=== PATIENT | male | born 1930 | race Caucasian/White ===

== ENCOUNTER 2018-10-10 13:20 | Day surgery (SDC) | payer MEDICARE, BC ==
[2018-10-03 11:45] VITALS: BP 155/79
[~2018-10-10] VITALS: Ht 172.7 cm; Wt 77.0 kg
[~2018-10-10 13:20] MED LIST: AMLO1CAP12 PO; CHOL500015 PO; DORZ10DR28 EACHEYE; ESOM40CA PO; FISH1CAP PO; LATA2.5D3 EACHEYE; LORA-633 PO; MULT-516 PO; VIT1CAPS42 PO
[2018-10-10] MEDS ORDERED: LACTATED RINGERS 1,000 ML IV SCH (14:26)
[2018-10-10] MEDS ORDERED: MIDAZOLAM 1 MG/ML, 2ML ONE (14:31)
[2018-10-10] MEDS ORDERED: FENTANYL PF 100 MCG/2ML ONE ×2 (14:32→16:19)
[2018-10-10] MEDS ORDERED: PROPOFOL 10 MG/ML, 20ML ONE (14:36)
[2018-10-10] MEDS ORDERED: ROCURONIUM 10MG/ML,5ML ONE ×2 (14:36→15:14)
[2018-10-10] MEDS ORDERED: ONDANSETRON 2MG/ML, 2ML ONE (14:37)
[2018-10-10] MEDS ORDERED: DEXAMETHASONE 4 MG/ML, 1ML ONE (14:37)
[2018-10-10] MEDS ORDERED: CEFTRIAXONE 1,000 MG ONE (15:10)
[2018-10-10 15:13] LABS: ALANINE AMINOTRANSFERASE 24 U/L (12-78); ALBUMIN 3.1 g/dL (3.4-5.0); ANION GAP 9 mmol/L (5-15); CALCIUM 8.6 mg/dL (8.5-10.1); CHLORIDE 109 mmol/L (98-107); CREATININE 1.34 mg/dL (0.7-1.3)
[2018-10-10 15:15] LABS: ALKALINE PHOSPHATASE 49 U/L (45-117); BILIRUBIN,TOTAL 0.5 mg/dL (0.2-1.0); TOTAL PROTEIN 6.8 g/dL (6.4-8.2)
[2018-10-10] MEDS ORDERED: OMNIPAQUE 350 MG/ML, 50 ML BOTTLE IV ONE (16:05)
[2018-10-10] MEDS ORDERED: hydrALAzine 20 MG/ML, 1ML IV PRN (16:30)
[2018-10-10] MEDS ORDERED: ACETAMINOPHEN 325 MG TABLET PO PRN (16:30)
[2018-10-10] MEDS ORDERED: LABETALOL 5MG/ML, 20ML IV PRN (16:30)
[2018-10-10] MEDS ORDERED: HYDROmorphone 1 MG/ML, 1ML IV PRN (16:30)
[2018-10-10] MEDS ORDERED: PROMETHAZINE 25 MG/ML, 1ML IV PRN (16:30)
[2018-10-10] MEDS ORDERED: FENTANYL PF 100 MCG/2ML IV PRN (16:30)
[2018-10-10] MEDS ORDERED: HALOPERIDOL 5 MG/ML IV PRN (16:30)
[2018-10-10] MEDS ORDERED: OXYcodone 5 MG/5 ML ORAL.SOL UDC PO PRN (16:30)
[2018-10-10] MEDS ORDERED: MEPERIDINE/PF 25MG/0.5ML IVPush PRN (16:30)
[2018-10-10] MEDS ORDERED: OMNIPAQUE 350 MG/ML, 50 ML BOTTLE ONE (17:41)
== END 2018-10-10 19:15 | disposition home or self-care (01) ==
LOC: OR 13:20 → 4NOR 17:23 → OR 19:15
PROVIDERS: ATTEND Urology
DX: N35.919 Unspecified urethral stricture, male, unspecified site (principal); N32.89 Other specified disorders of bladder; K21.9 Gastro-esophageal reflux disease without esophagitis; I10 Essential (primary) hypertension; Z87.440 Personal history of urinary (tract) infections; Z79.899 Other long term (current) drug therapy
CPT/HCPCS: 36415; 52281; 74450; 80053; 93005; C1769; J0696; J1100; J2250; J2405; J2704; J3010; J7120; Q9967; G0378

== ENCOUNTER → 2020-09-15 | Outpatient (CLI) | payer MEDICARE, BC ==
[~2020-09-15] MED LIST changes: -AMLO1CAP12 PO; +AMLO1CAP13 PO; +AMOX1TAB12 PO; +CETI-158 PO; +DICL100G19 TP; +DORZ10DR7 OP; -LATA2.5D3 EACHEYE; +LATA2.5D4 EACHEYE; +METO-95 PO; +METO25TA35 PO; +TAMS-11 PO; +THIA100T67 PO
== END | disposition home or self-care (01) ==
LOC: STAR 08:42
PROVIDERS: ATTEND Urology
DX: Z01.812 Encounter for preprocedural laboratory examination (principal); Z20.828 Contact with and (suspected) exposure to other viral communicable diseases; R31.0 Gross hematuria
CPT/HCPCS: 36415; 87635; 93005

== ENCOUNTER 2020-09-19 08:26 | Day surgery (SDC) | payer MEDICARE, BC ==
[~2020-09-19] VITALS: Ht 171.4 cm; Wt 77.0 kg
[2020-09-19 09:19] VITALS: BP 174/76
[2020-09-19] MEDS ORDERED: LACTATED RINGERS 1,000 ML IV SCH (09:30)
[2020-09-19] MEDS ORDERED: CHLORHEXIDINE 15 ML UDC MM ONE (09:30)
[2020-09-19] MEDS ORDERED: BUPIVACAINE/PF 0.5% ONE (11:03)
[2020-09-19] MEDS ORDERED: EPINEPHRINE 1 MG/ML, 1ML INFIL ONE (11:25)
[2020-09-19] MEDS ORDERED: OMNIPAQUE 350 MG/ML, 50 ML BOTTLE IV ONE (11:26)
[2020-09-19] MEDS ORDERED: METOCLOPRAMIDE 5 MG/ML, 2ML IV PRN (11:30)
[2020-09-19] MEDS ORDERED: hydrALAzine 20 MG/ML, 1ML IV PRN (11:30)
[2020-09-19] MEDS ORDERED: MEPERIDINE/PF 25MG/0.5ML IVPush PRN (11:30)
[2020-09-19] MEDS ORDERED: HYDROmorphone 1 MG/ML, 1ML INJ IV PRN (11:30)
[2020-09-19] MEDS ORDERED: FENTANYL PF 100 MCG/2ML IV PRN (11:30)
[2020-09-19] MEDS ORDERED: KETOROLAC 30 MG/1 ML IV PRN (11:30)
[2020-09-19] MEDS ORDERED: ONDANSETRON 2MG/ML, 2ML IVPush PRN (11:30)
[2020-09-19] MEDS ORDERED: OXYcodone 5 MG/5 ML ORAL.SOL UDC PO PRN (11:30)
[2020-09-19] MEDS ORDERED: ALBUTEROL SULFATE 2.5 MG/3 ML NPPB PRN (11:30)
[2020-09-19] MEDS ORDERED: PROMETHAZINE 25 MG/ML, 1ML IV PRN (11:30)
[2020-09-19] MEDS ORDERED: LABETALOL 5MG/ML, 20ML IV PRN (11:30)
[2020-09-19] MEDS ORDERED: DIAZEPAM 5 MG/ML, 2ML IV PRN ×2 (11:30)
[2020-09-19] MEDS ORDERED: hydrALAzine 20 MG/ML, 1ML ONE (12:43)
[2020-09-19] MEDS ORDERED: FENTANYL PF 100 MCG/2ML ONE (12:44)
[2020-09-19] MEDS ORDERED: PROPOFOL 10 MG/ML, 20ML ONE (15:14)
[2020-09-19] MEDS ORDERED: CEFAZOLIN 1,000 MG ONE (15:14)
[2020-09-19] MEDS ORDERED: SUCCINYLCHOLINE 20 MG/ML, 10ML ONE (15:14)
[2020-09-19] MEDS ORDERED: ONDANSETRON 2MG/ML, 2ML ONE (15:14)
[2020-09-19] MEDS ORDERED: ROCURONIUM 10MG/ML,5ML ONE (15:14)
== END 2020-09-19 15:50 | disposition home or self-care (01) ==
LOC: OUT 08:26
PROVIDERS: ATTEND Urology
DX: N35.813 Other membranous urethral stricture, male (principal); N13.1 Hydronephrosis with ureteral stricture, not elsewhere classified; I10 Essential (primary) hypertension; K21.9 Gastro-esophageal reflux disease without esophagitis; Z79.899 Other long term (current) drug therapy; Z85.46 Personal history of malignant neoplasm of prostate; Z90.49 Acquired absence of other specified parts of digestive tract; Z90.79 Acquired absence of other genital organ(s); Z92.3 Personal history of irradiation; Z98.890 Other specified postprocedural states
CPT/HCPCS: 51102; 52332; 74420; C1769; C2617; J0171; J0330; J0690; J2405; J2704; J3010; J7120; Q9967